=== PATIENT | female | born 2005 | race Caucasian/White ===

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

== ENCOUNTER 2024-01-03 18:52 | Emergency (ER) | payer OTHER ==
[2024-01-03] MEDS: ACETAMINOPHEN *IV* 1,000 MG in IV 1 EA IV ONE (19:53)
[2024-01-03] MEDS: ONDANSETRON 4MG 2ML VIAL IV ONE (19:54)
[2024-01-03 20:06] LABS: BASO % 0.3 % (0.0-1.0); EOS # 0.2 10^3/uL (0.0-0.5); HEMATOCRIT 34.6 % (36.0-47.0); HEMOGLOBIN 11.4 g/dl (12.0-15.5); LYMPH % 25.8 % (24.0-44.0); MEAN CORPUSCULAR HEMOGLOBIN 28.4 pg (27.0-33.0); MEAN CORPUSCULAR HGB CONC 32.9 g/dl (32.0-36.5); MEAN CORPUSCULAR VOLUME 86.3 fl (80.0-96.0); MONO # 0.6 10^3/uL (0.0-0.8); MONO % 7.9 % (2.0-8.0); NEUTROPHILS # 4.9 10^3/uL (1.5-8.5); NEUTROPHILS % 63.7 % (36.0-66.0); PLATELET COUNT, AUTOMATED 254 10^3/uL (150-450); RED BLOOD COUNT 4.01 10^6/uL (4.00-5.40); WHITE BLOOD COUNT 7.7 10^3/uL (4.0-10.0)
[2024-01-03 20:28] LABS: CK-MB VALUE MASS < 1.0 NG/ML (<3.6)
[2024-01-03 20:29] LABS: LIPASE 29 U/L (12-53)
[2024-01-03 20:31] LABS: ALBUMIN 3.2 G/DL (3.2-5.2); ALKALINE PHOSPHATASE 60 U/L (46-116); ALT/SGPT 39 U/L (7.0-40); AST/SGOT 24 U/L (<34); BILIRUBIN,DIRECT 0.2 MG/DL (<0.4); BILIRUBIN,TOTAL 0.5 MG/DL (0.3-1.2); BLOOD UREA NITROGEN 10 MG/DL (9-23); CALCIUM LEVEL 8.7 MG/DL (8.5-10.1); CARBON DIOXIDE LEVEL 27 MMOL/L (20-31); CHLORIDE LEVEL 108 MMOL/L (98-107); CPK CREATINE PHOSPHOKINASE 46 U/L (34-145); CREATININE FOR GFR 0.73 MG/DL (0.55-1.30); GLUCOSE, FASTING 85 MG/DL (60-100); MB/CK RELATIVE INDEX 2.17 (< OR =4); POTASSIUM SERUM 3.8 MMOL/L (3.5-5.1); SODIUM LEVEL 141 MMOL/L (136-145); TOTAL PROTEIN 6.3 G/DL (5.7-8.2)
[2024-01-03 20:33] LABS: FREE T4 1.01 NG/DL (0.83-1.43); THYROID STIMULATING HORMONE 1.855 uIU/ML (0.48-4.17)
[2024-01-03] MEDS ORDERED: ISOVUE-370 76% 100ML VIAL As Ordered ONE (20:38)
[2024-01-03 21:04] LABS: HIV 1&2 SCREEN NEGATIVE (NEGATIVE)
[2024-01-03 21:06] LABS: APPEARANCE, URINE CLEAR (CLEAR); BACTERIA, URINE AUTO NEGATIVE (NEGATIVE); BILIRUBIN, URINE AUTO NEGATIVE (NEGATIVE); BLOOD, URINE BLOOD NEGATIVE (NEGATIVE); COLOR, URINE STRAW (YELLOW); GLUCOSE, URINE (UA) AUTO NEGATIVE (NEGATIVE); KETONE, URINE AUTO NEGATIVE (NEGATIVE); LEUKOCYTE ESTERASE, URINE AUTO 1+ (NEGATIVE); NITRITE, URINE AUTO NEGATIVE (NEGATIVE); PROTEIN, URINE AUTO NEGATIVE (NEGATIVE); RBC, URINE AUTO 0 /HPF (0-3); SPECIFIC GRAVITY URINE AUTO 1.005 (1.002-1.035); SQUAMOUS EPITHELIAL CELL UR AU 0 /HPF (0-6); UROBILINOGEN, URINE AUTO 0.2 mg/dL (0.0-2.0); WBC, URINE AUTO 18 /HPF (0-3)
[2024-01-03 21:24] LABS: CK-MB VALUE MASS < 1.0 NG/ML (<3.6)
[2024-01-03 21:28] LABS: CPK CREATINE PHOSPHOKINASE 45 U/L (34-145); MB/CK RELATIVE INDEX 2.22 (< OR =4)
[2024-01-03 22:09] VITALS: BP 102/58; TEMP 98.4; O2SAT 99
[2024-01-03] MEDS ORDERED: ACET-683 PO (22:13)
== END 2024-01-03 22:18 | disposition home or self-care (01) ==
LOC: EDBD 18:52 → M ED 18:52 → EDUNIT# 18:52 → M ED 22:18
DX: R07.89 Other chest pain (principal); R10.9 Unspecified abdominal pain; I45.81 Long QT syndrome; Z91.013 Allergy to seafood; Z79.1 Long term (current) use of non-steroidal anti-inflammatories (NSAID)
CPT/HCPCS: 71045; 74177; 80048; 80076; 81001; 82550; 82553; 83690; 84439; 84443; 84484; 85025; 85379; 87389; 87486; 87581; 87633; 87798; 93005; 96374; 96375; 99284; J0131; J2405; Q9967

== ENCOUNTER 2024-02-03 22:37 | Emergency (ER) | payer OTHER ==
[~2024-02-03] VITALS: Ht 160 cm; Wt 72.3 kg
[~2024-02-03 22:37] MED LIST changes: +ACET-683 PO; +ONDA-282 PO; -ONDA4TAB6 PO
[2024-02-04 07:39] LABS: BASO % 0.3 % (0.0-1.0); EOS # 0.2 10^3/uL (0.0-0.5); EOS % 3.1 % (0.0-3.0); HEMATOCRIT 37.6 % (36.0-47.0); HEMOGLOBIN 11.9 g/dl (12.0-15.5); LYMPH # 2.3 10^3/uL (1.5-5.0); LYMPH % 37.8 % (24.0-44.0); MEAN CORPUSCULAR HEMOGLOBIN 27.7 pg (27.0-33.0); MEAN CORPUSCULAR HGB CONC 31.6 g/dl (32.0-36.5); MEAN CORPUSCULAR VOLUME 87.4 fl (80.0-96.0); MONO # 0.6 10^3/uL (0.0-0.8); MONO % 10.5 % (2.0-8.0); NEUTROPHILS # 2.9 10^3/uL (1.5-8.5); PLATELET COUNT, AUTOMATED 238 10^3/uL (150-450); WHITE BLOOD COUNT 6.1 10^3/uL (4.0-10.0)
[2024-02-04 07:58] LABS: LIPASE 32 U/L (12-53)
[2024-02-04 08:01] LABS: ALBUMIN 3.4 G/DL (3.2-5.2); ALKALINE PHOSPHATASE 57 U/L (46-116); ALT/SGPT 27 U/L (7.0-40); AST/SGOT 14 U/L (<34); BILIRUBIN,DIRECT 0.2 MG/DL (<0.4); BILIRUBIN,TOTAL 0.7 MG/DL (0.3-1.2); BLOOD UREA NITROGEN 12 MG/DL (9-23); CARBON DIOXIDE LEVEL 29 MMOL/L (20-31); CHLORIDE LEVEL 107 MMOL/L (98-107); CREATININE FOR GFR 0.68 MG/DL (0.55-1.30); GLUCOSE, FASTING 87 MG/DL (60-100); POTASSIUM SERUM 3.8 MMOL/L (3.5-5.1); SODIUM LEVEL 141 MMOL/L (136-145); TOTAL PROTEIN 6.6 G/DL (5.7-8.2)
[2024-02-04 08:12] LABS: HCG, SERUM QUALITATIVE NEGATIVE (NEGATIVE)
[2024-02-04] MEDS ORDERED: ISOVUE-370 76% 100ML VIAL As Ordered ONE (08:40)
[2024-02-04] MEDS ORDERED: ONDA-282 PO (09:20)
[2024-02-04] MEDS ORDERED: PROT1TAB2 PO (09:20)
[2024-02-04 09:38] VITALS: BP 109/52; TEMP 97.8; O2SAT 99
== END 2024-02-04 09:39 | disposition home or self-care (01) ==
LOC: M ED 22:37
DX: G43.909 Migraine, unspecified, not intractable, without status migrainosus (principal); K92.0 Hematemesis; F41.9 Anxiety disorder, unspecified; F32.A Depression, unspecified; Z91.013 Allergy to seafood; Z79.83 Long term (current) use of bisphosphonates; Z79.1 Long term (current) use of non-steroidal anti-inflammatories (NSAID); Z79.899 Other long term (current) drug therapy
CPT/HCPCS: 36415; 74177; 80048; 80076; 83690; 84703; 85025; 86850; 86900; 86901; 99284; Q9967

== ENCOUNTER 2024-04-13 20:39 | Emergency (ER) | payer OTHER ==
[~2024-04-13] VITALS: Ht 162.6 cm; Wt 71.9 kg
[~2024-04-13 20:39] MED LIST changes: +PROT1TAB2 PO
[2024-04-13 20:54] VITALS: TEMP 99
[2024-04-13 21:38] LABS: BASO % 0.5 % (0.0-1.0); EOS # 0.1 10^3/uL (0.0-0.5); EOS % 1.1 % (0.0-3.0); HEMATOCRIT 39.4 % (36.0-47.0); LYMPH # 2.7 10^3/uL (1.5-5.0); LYMPH % 30.9 % (24.0-44.0); MEAN CORPUSCULAR HEMOGLOBIN 28.5 pg (27.0-33.0); MEAN CORPUSCULAR VOLUME 86.4 fl (80.0-96.0); MONO # 0.6 10^3/uL (0.0-0.8); MONO % 7.1 % (2.0-8.0); NEUTROPHILS # 5.2 10^3/uL (1.5-8.5); NEUTROPHILS % 60.2 % (36.0-66.0); PLATELET COUNT, AUTOMATED 264 10^3/uL (150-450); RED BLOOD COUNT 4.56 10^6/uL (4.00-5.40); WHITE BLOOD COUNT 8.6 10^3/uL (4.0-10.0)
[2024-04-13 21:58] LABS: INR 1.11; PARTIAL THROMBOPLASTIN TIME 29.3 SECONDS (24.8-34.2); PROTHROMBIN TIME 13.9 SECONDS (12.5-14.5)
[2024-04-13 22:07] LABS: LIPASE 34 U/L (12-53)
[2024-04-13 22:10] LABS: ALBUMIN 3.8 G/DL (3.2-5.2); ALKALINE PHOSPHATASE 66 U/L (46-116); ALT/SGPT 18 U/L (7.0-40); AST/SGOT 20 U/L (<34); BILIRUBIN,DIRECT 0.2 MG/DL (<0.4); BILIRUBIN,TOTAL 0.5 MG/DL (0.3-1.2); BLOOD UREA NITROGEN 14 MG/DL (9-23); CALCIUM LEVEL 9.9 MG/DL (8.5-10.1); CARBON DIOXIDE LEVEL 25 MMOL/L (20-31); CHLORIDE LEVEL 109 MMOL/L (98-107); CREATININE FOR GFR 0.96 MG/DL (0.55-1.30); GLUCOSE, FASTING 94 MG/DL (60-100); POTASSIUM SERUM 3.9 MMOL/L (3.5-5.1); SODIUM LEVEL 141 MMOL/L (136-145); TOTAL PROTEIN 7.7 G/DL (5.7-8.2)
[2024-04-13 22:35] LABS: HCG, SERUM QUALITATIVE NEGATIVE (NEGATIVE)
[2024-04-13] MEDS: diphenhydrAMINE 50MG/ML VIAL IV ONE (22:45)
[2024-04-13] MEDS: METOCLOPRAMIDE INJ 10MG/2ML VIAL IV ONE (22:45)
[2024-04-13] MEDS: KETOROLAC 30 MG/ML 1ML VIAL IV ONE (22:46)
[2024-04-13] MEDS: NS 1,000 ML IV ONE (22:46)
[2024-04-13] MEDS ORDERED: ISOVUE-370 76% 100ML VIAL As Ordered ONE (23:07)
[2024-04-14 01:59] LABS: BASO % 0.4 % (0.0-1.0); EOS # 0.1 10^3/uL (0.0-0.5); EOS % 0.9 % (0.0-3.0); HEMATOCRIT 34.7 % (36.0-47.0); HEMOGLOBIN 11.3 g/dl (12.0-15.5); LYMPH # 2.1 10^3/uL (1.5-5.0); LYMPH % 27.1 % (24.0-44.0); MEAN CORPUSCULAR HEMOGLOBIN 28.3 pg (27.0-33.0); MEAN CORPUSCULAR HGB CONC 32.6 g/dl (32.0-36.5); MONO # 0.5 10^3/uL (0.0-0.8); MONO % 6.2 % (2.0-8.0); NEUTROPHILS # 5.1 10^3/uL (1.5-8.5); NEUTROPHILS % 65.1 % (36.0-66.0); PLATELET COUNT, AUTOMATED 240 10^3/uL (150-450); RED BLOOD COUNT 3.99 10^6/uL (4.00-5.40); WHITE BLOOD COUNT 7.8 10^3/uL (4.0-10.0)
[2024-04-14] MEDS ORDERED: FIOR1CAP PO (02:58)
[2024-04-14] MEDS ORDERED: AMIT10TA7 PO (02:58)
[2024-04-14 03:15] VITALS: BP 101/56; O2SAT 96
== END 2024-04-14 03:23 | disposition home or self-care (01) ==
LOC: M ED 20:39
DX: G43.709 Chronic migraine without aura, not intractable, without status migrainosus (principal); F32.A Depression, unspecified; F17.200 Nicotine dependence, unspecified, uncomplicated; F12.10 Cannabis abuse, uncomplicated; F10.10 Alcohol abuse, uncomplicated; Z91.013 Allergy to seafood; Z79.83 Long term (current) use of bisphosphonates; Z79.1 Long term (current) use of non-steroidal anti-inflammatories (NSAID); Z79.899 Other long term (current) drug therapy
CPT/HCPCS: 70450; 74177; 80048; 80076; 83690; 84703; 85025; 85610; 85730; 86850; 86900; 86901; 93005; 93041; 96361; 96374; 96375; 99285; J1200; J1885; J2765; Q9967

== ENCOUNTER → 2024-05-02 | Outpatient (REF) | payer OTHER ==
[~2024-05-02] MED LIST changes: +AMIT10TA7 PO; +FIOR1CAP PO
[2024-05-02 18:42] LABS: BASO % 0.4 % (0.0-1.0); EOS # 0.1 10^3/uL (0.0-0.5); EOS % 2.4 % (0.0-3.0); HEMATOCRIT 40.3 % (36.0-47.0); HEMOGLOBIN 13.1 g/dl (12.0-15.5); LYMPH % 40.1 % (24.0-44.0); MEAN CORPUSCULAR HEMOGLOBIN 28.5 pg (27.0-33.0); MEAN CORPUSCULAR HGB CONC 32.5 g/dl (32.0-36.5); MEAN CORPUSCULAR VOLUME 87.8 fl (80.0-96.0); MONO # 0.5 10^3/uL (0.0-0.8); MONO % 10.1 % (2.0-8.0); NEUTROPHILS # 2.3 10^3/uL (1.5-8.5); NEUTROPHILS % 46.8 % (36.0-66.0); PLATELET COUNT, AUTOMATED 192 10^3/uL (150-450); RED BLOOD COUNT 4.59 10^6/uL (4.00-5.40); WHITE BLOOD COUNT 4.9 10^3/uL (4.0-10.0)
[2024-05-02 19:21] LABS: FERRITIN 34.6 NG/ML (7.3-270.7)
== END ==
LOC: M LAB REF 16:24
PROVIDERS: ATTEND Physician Assistant
DX: Z87.19 Personal history of other diseases of the digestive system (principal)

== ENCOUNTER 2024-05-14 18:28 | Emergency (ER) | payer OTHER ==
[~2024-05-14] VITALS: Ht 162.6 cm; Wt 62.0 kg
[2024-05-14 18:39] VITALS: BP 134/90; TEMP 97.9; O2SAT 94
[2024-05-14 19:36] LABS: HEMATOCRIT 42.2 % (36.0-47.0); HEMOGLOBIN 13.5 g/dl (12.0-15.5); MEAN CORPUSCULAR HEMOGLOBIN 27.7 pg (27.0-33.0); MEAN CORPUSCULAR VOLUME 86.5 fl (80.0-96.0); PLATELET COUNT, AUTOMATED 274 10^3/uL (150-450); RED BLOOD COUNT 4.88 10^6/uL (4.00-5.40); WHITE BLOOD COUNT 6.5 10^3/uL (4.0-10.0)
[2024-05-14 20:09] LABS: ETHYL ALCOHOL (ETHANOL) < 0.003 % (0.000-0.010)
[2024-05-14 20:10] LABS: SALICYLATE LEVEL < 3.0 MG/DL (<30)
[2024-05-14 20:11] LABS: ALKALINE PHOSPHATASE 78 U/L (46-116); ALT/SGPT 16 U/L (7.0-40); AST/SGOT < 8 U/L (<34); BILIRUBIN,DIRECT 0.2 MG/DL (<0.4); BILIRUBIN,TOTAL 0.6 MG/DL (0.3-1.2); BLOOD UREA NITROGEN 10 MG/DL (9-23); CALCIUM LEVEL 9.2 MG/DL (8.5-10.1); CARBON DIOXIDE LEVEL 26 MMOL/L (20-31); CHLORIDE LEVEL 106 MMOL/L (98-107); CREATININE FOR GFR 0.75 MG/DL (0.55-1.30); GLUCOSE, FASTING 90 MG/DL (60-100); POTASSIUM SERUM 3.6 MMOL/L (3.5-5.1); SODIUM LEVEL 138 MMOL/L (136-145); TOTAL PROTEIN 8.1 G/DL (5.7-8.2)
[2024-05-14 20:13] LABS: HCG, SERUM QUALITATIVE NEGATIVE (NEGATIVE); THYROID STIMULATING HORMONE 1.225 uIU/ML (0.48-4.17)
== END 2024-05-14 21:40 | disposition home or self-care (01) ==
LOC: M ED 18:28
DX: F43.0 Acute stress reaction (principal); Z91.013 Allergy to seafood; Z79.1 Long term (current) use of non-steroidal anti-inflammatories (NSAID); Z79.899 Other long term (current) drug therapy

== ENCOUNTER 2024-05-25 12:14 | Emergency (ER) | payer OTHER ==
[~2024-05-25] VITALS: Ht 162.6 cm; Wt 70.4 kg
[2024-05-25 12:24] VITALS: BP 122/76; TEMP 97.3; O2SAT 99
== END 2024-05-25 12:38 | disposition left against medical advice (07) ==
LOC: M ED 12:14 → EDBD 12:14 → M ED 12:38
DX: Z53.21 Procedure and treatment not carried out due to patient leaving prior to being seen by health care provider (principal)

== ENCOUNTER → 2024-05-31 | Outpatient (CLI) | payer OTHER | LOC: M RAD 09:08 | PROVIDERS: ATTEND Physician Assistant | DX: R10.13 Epigastric pain (principal) ==

== ENCOUNTER 2024-06-23 21:14 | Emergency (ER) | payer OTHER ==
[~2024-06-23] VITALS: Ht 160 cm; Wt 71.6 kg
[2024-06-23 21:20] VITALS: BP 118/82; TEMP 97.3; O2SAT 100
[2024-06-23 21:36] LABS: URINE PREG TEST NEGATIVE (NEGATIVE)
== END 2024-06-23 22:47 | disposition home or self-care (01) ==
LOC: M ED 21:14
DX: Z32.02 Encounter for pregnancy test, result negative (principal); Z91.013 Allergy to seafood; Z79.1 Long term (current) use of non-steroidal anti-inflammatories (NSAID); Z79.899 Other long term (current) drug therapy

== ENCOUNTER 2024-06-24 12:46 | Emergency (ER) | payer OTHER ==
[~2024-06-24] VITALS: Ht 160 cm; Wt 50.0 kg
[2024-06-24 13:00] VITALS: TEMP 98.1
[2024-06-24 13:29] LABS: BASO % 0.3 % (0.0-1.0); EOS # 0.1 10^3/uL (0.0-0.5); EOS % 1.2 % (0.0-3.0); HEMATOCRIT 39.8 % (36.0-47.0); HEMOGLOBIN 12.8 g/dl (12.0-15.5); LYMPH # 1.5 10^3/uL (1.5-5.0); LYMPH % 22.6 % (24.0-44.0); MEAN CORPUSCULAR HEMOGLOBIN 28.4 pg (27.0-33.0); MEAN CORPUSCULAR HGB CONC 32.2 g/dl (32.0-36.5); MEAN CORPUSCULAR VOLUME 88.2 fl (80.0-96.0); MONO # 0.8 10^3/uL (0.0-0.8); MONO % 11.8 % (2.0-8.0); NEUTROPHILS # 4.3 10^3/uL (1.5-8.5); NEUTROPHILS % 63.8 % (36.0-66.0); PLATELET COUNT, AUTOMATED 268 10^3/uL (150-450); RED BLOOD COUNT 4.51 10^6/uL (4.00-5.40); WHITE BLOOD COUNT 6.8 10^3/uL (4.0-10.0)
[2024-06-24 14:00] LABS: ALBUMIN 3.6 G/DL (3.2-5.2); ALKALINE PHOSPHATASE 65 U/L (35-104); ALT/SGPT 21 U/L (7.0-40); AST/SGOT 12 U/L (<34); BILIRUBIN,DIRECT 0.2 MG/DL (<0.4); BILIRUBIN,TOTAL 0.5 MG/DL (0.3-1.2); BLOOD UREA NITROGEN 12 MG/DL (9-23); CALCIUM LEVEL 9.9 MG/DL (8.5-10.1); CARBON DIOXIDE LEVEL 29 MMOL/L (20-31); CHLORIDE LEVEL 108 MMOL/L (98-107); CK-MB VALUE MASS < 1.0 NG/ML (<3.6); CPK CREATINE PHOSPHOKINASE 37 U/L (34-145); CREATININE FOR GFR 0.84 MG/DL (0.55-1.30); GLUCOSE, FASTING 84 MG/DL (60-100); MAGNESIUM LEVEL 1.9 MG/DL (1.8-2.4); POTASSIUM SERUM 4.3 MMOL/L (3.5-5.1); SODIUM LEVEL 142 MMOL/L (136-145); TOTAL PROTEIN 7.6 G/DL (5.7-8.2)
[2024-06-24 14:08] LABS: HCG, SERUM QUALITATIVE NEGATIVE (NEGATIVE)
[2024-06-24] MEDS: LIDOCAINE VISCOUS 2% SOLN 15ML UDC PO ONE (14:39)
[2024-06-24] MEDS: ONDANSETRON 4MG ORAL DISINTEGRATING TAB PO ONE (14:39)
[2024-06-24] MEDS: MAALOX 30 ML SUSP *UDC PO ONE (14:39)
[2024-06-24] MEDS: SUCRALFATE SUSP 1GM/10ML UD PO ONE (14:39)
[2024-06-24 16:15] VITALS: BP 121/72
[2024-06-24 16:16] VITALS: O2SAT 98
== END 2024-06-24 16:32 | disposition home or self-care (01) ==
LOC: EDBD 12:46 → M ED 12:46
DX: R55 Syncope and collapse (principal); R00.0 Tachycardia, unspecified; F32.A Depression, unspecified; F41.9 Anxiety disorder, unspecified; F17.290 Nicotine dependence, other tobacco product, uncomplicated; Z91.013 Allergy to seafood; Z79.1 Long term (current) use of non-steroidal anti-inflammatories (NSAID); Z79.899 Other long term (current) drug therapy

== ENCOUNTER 2024-08-08 15:13 | Emergency (ER) | payer OTHER ==
[~2024-08-08] VITALS: Ht 162.6 cm; Wt 79.4 kg
[2024-08-08 16:00] LABS: HEMATOCRIT 39.5 % (36.0-47.0); HEMOGLOBIN 12.7 g/dl (12.0-15.5); MEAN CORPUSCULAR HEMOGLOBIN 28.2 pg (27.0-33.0); MEAN CORPUSCULAR HGB CONC 32.2 g/dl (32.0-36.5); MEAN CORPUSCULAR VOLUME 87.6 fl (80.0-96.0); PLATELET COUNT, AUTOMATED 256 10^3/uL (150-450); RED BLOOD COUNT 4.51 10^6/uL (4.00-5.40); WHITE BLOOD COUNT 6.8 10^3/uL (4.0-10.0)
[2024-08-08 16:23] LABS: ETHYL ALCOHOL (ETHANOL) < 0.003 % (0.000-0.010); HCG, SERUM QUALITATIVE NEGATIVE (NEGATIVE)
[2024-08-08 16:24] LABS: SALICYLATE LEVEL < 3.0 MG/DL (<30)
[2024-08-08 16:25] LABS: ALBUMIN 3.7 G/DL (3.2-5.2); ALKALINE PHOSPHATASE 63 U/L (35-104); ALT/SGPT 17 U/L (7.0-40); AST/SGOT 13 U/L (<34); BILIRUBIN,DIRECT 0.1 MG/DL (<0.4); BILIRUBIN,TOTAL 0.4 MG/DL (0.3-1.2); BLOOD UREA NITROGEN 10 MG/DL (9-23); CALCIUM LEVEL 9.9 MG/DL (8.5-10.1); CARBON DIOXIDE LEVEL 27 MMOL/L (20-31); CHLORIDE LEVEL 106 MMOL/L (98-107); GLUCOSE, FASTING 86 MG/DL (60-100); POTASSIUM SERUM 3.8 MMOL/L (3.5-5.1); SODIUM LEVEL 141 MMOL/L (136-145); TOTAL PROTEIN 7.2 G/DL (5.7-8.2)
[2024-08-08 16:27] LABS: THYROID STIMULATING HORMONE 2.611 uIU/ML (0.48-4.17)
[2024-08-08 16:59] LABS: AMPHETAMINES LEVEL URINE NEGATIVE (NEGATIVE); BARBITURATES URINE NEGATIVE (NEGATIVE); BENZODIAZEPINES URINE NEGATIVE (NEGATIVE); CANNABINOIDS URINE NEGATIVE (NEGATIVE); COCAINE METABOLITE URINE NEGATIVE (NEGATIVE); METHADONE URINE NEGATIVE (NEGATIVE); OPIATES URINE NEGATIVE (NEGATIVE); PHENCYCLIDINE URINE NEGATIVE (NEGATIVE)
[2024-08-08 17:59] VITALS: BP 127/75; TEMP 97.9; O2SAT 100
== END 2024-08-08 18:06 | disposition home or self-care (01) ==
LOC: M ED 15:13
DX: F43.0 Acute stress reaction (principal); F32.A Depression, unspecified; F41.9 Anxiety disorder, unspecified; Z91.013 Allergy to seafood; Z79.1 Long term (current) use of non-steroidal anti-inflammatories (NSAID); Z79.899 Other long term (current) drug therapy

== ENCOUNTER → 2024-08-09 | Outpatient (CLI) | payer OTHER ==
[2024-08-09 13:10] LABS: BASO % 0.7 % (0.0-1.0); EOS # 0.1 10^3/uL (0.0-0.5); EOS % 1.3 % (0.0-3.0); HEMATOCRIT 39.7 % (36.0-47.0); LYMPH # 1.6 10^3/uL (1.5-5.0); LYMPH % 25.8 % (24.0-44.0); MEAN CORPUSCULAR HEMOGLOBIN 28.2 pg (27.0-33.0); MEAN CORPUSCULAR HGB CONC 32.7 g/dl (32.0-36.5); MEAN CORPUSCULAR VOLUME 86.1 fl (80.0-96.0); MONO # 0.4 10^3/uL (0.0-0.8); MONO % 6.2 % (2.0-8.0); NEUTROPHILS % 65.8 % (36.0-66.0); PLATELET COUNT, AUTOMATED 256 10^3/uL (150-450); RED BLOOD COUNT 4.61 10^6/uL (4.00-5.40); WHITE BLOOD COUNT 6.1 10^3/uL (4.0-10.0)
[2024-08-09 13:16] LABS: ERYTHROCYTE SEDIMENTATION RATE 29 mm/hr (0-20)
[2024-08-09 13:42] LABS: BLOOD UREA NITROGEN 15 MG/DL (9-23); C REACTIVE PROTEIN QUANTITATIV < 0.50 MG/DL (<1.0); CALCIUM LEVEL 9.5 MG/DL (8.5-10.1); CARBON DIOXIDE LEVEL 28 MMOL/L (20-31); CHLORIDE LEVEL 103 MMOL/L (98-107); GLUCOSE, FASTING 108 MG/DL (60-100); IRON (FE) 34 UG/DL (50-170); PERCENT SATURATION 10.7 % (13.2-45.0); POTASSIUM SERUM 3.6 MMOL/L (3.5-5.1); SODIUM LEVEL 140 MMOL/L (136-145); TOTAL IRON BINDING CAPACITY 317 UG/DL (250-425)
[2024-08-09 13:43] LABS: FERRITIN 31.3 NG/ML (7.3-270.7)
[2024-08-09 13:46] LABS: HCG, SERUM QUALITATIVE NEGATIVE (NEGATIVE)
== END ==
LOC: M RAD 11:42
PROVIDERS: ATTEND Physician Assistant
DX: R06.00 Dyspnea, unspecified (principal); E61.1 Iron deficiency

== ENCOUNTER → 2024-08-22 | Outpatient (CLI) | payer OTHER | LOC: M RAD 11:40 | PROVIDERS: ATTEND Physician Assistant | DX: R10.13 Epigastric pain (principal) | CPT/HCPCS: 78227; A9537 ==

== ENCOUNTER → 2024-11-14 | Outpatient (CLI) | payer OTHER ==
[2024-11-14 14:56] LABS: HEMATOCRIT 38.6 % (36.0-47.0); HEMOGLOBIN 12.6 g/dl (12.0-15.5); MEAN CORPUSCULAR HEMOGLOBIN 27.6 pg (27.0-33.0); MEAN CORPUSCULAR HGB CONC 32.6 g/dl (32.0-36.5); MEAN CORPUSCULAR VOLUME 84.5 fl (80.0-96.0); PLATELET COUNT, AUTOMATED 313 10^3/uL (150-450); RED BLOOD COUNT 4.57 10^6/uL (4.00-5.40); WHITE BLOOD COUNT 10.7 10^3/uL (4.0-10.0)
[2024-11-14 16:02] LABS: Trichomonas vaginalis (AMP) NOT DETECTED (NEGATIVE)
[2024-11-14 16:07] LABS: HIV 1&2 SCREEN NEGATIVE (NEGATIVE)
[2024-11-14 16:15] LABS: HEPATITIS C VIRUS ABY INDEX 0.03 INDEX (<0.8)
[2024-11-14 16:25] LABS: GC DNA AMPLIFICATION NEGATIVE (NEGATIVE)
== END ==
LOC: M LAB 14:02
PROVIDERS: ATTEND Specialist
DX: Z36.89 Encounter for other specified antenatal screening (principal); Z34.01 Encounter for supervision of normal first pregnancy, first trimester

== ENCOUNTER 2024-11-27 20:55 | Emergency (ER) | payer OTHER ==
[~2024-11-27] VITALS: Ht 165.1 cm; Wt 87.9 kg
[2024-11-27 22:10] VITALS: TEMP 96.3
[2024-11-27] MEDS: NS (Normal Saline) 0.9% 1,000 ML IV ONE ×2 (22:45→23:25)
[2024-11-27 23:16] VITALS: BP 112/55
[2024-11-27 23:55] VITALS: O2SAT 99
== END 2024-11-28 00:24 | disposition home or self-care (01) ==
LOC: M ED 20:55
DX: R11.2 Nausea with vomiting, unspecified (principal); Z91.013 Allergy to seafood; Z79.1 Long term (current) use of non-steroidal anti-inflammatories (NSAID); Z79.899 Other long term (current) drug therapy

== ENCOUNTER → 2024-12-01 | Outpatient (REF) | payer OTHER ==
[2024-12-01 13:23] LABS: Trichomonas vaginalis (AMP) NOT DETECTED (NEGATIVE)
[2024-12-01 13:46] LABS: GC DNA AMPLIFICATION NEGATIVE (NEGATIVE)
== END ==
LOC: M LAB REF 11:34
PROVIDERS: ATTEND Physician Assistant
DX: R30.0 Dysuria (principal)

== ENCOUNTER 2024-12-25 20:12 | Emergency (ER) | payer OTHER, MEDICAID ==
[~2024-12-25] VITALS: Ht 162.6 cm; Wt 85.0 kg
[2024-12-25 21:45] LABS: KETONE, URINE AUTO RFX NEGATIVE (NEGATIVE); MUCUS, URINE RFX SMALL (NEGATIVE); NITRITE, URINE AUTO RFX NEGATIVE (NEGATIVE); RBC, URINE AUTO RFX 6 /HPF (0-3); SQUAM EPITHELIAL CELL UR AURFX 21 /HPF (0-6)
[2024-12-25 21:46] LABS: BASO % 0.2 % (0.0-1.0); EOS # 0.1 10^3/uL (0.0-0.5); EOS % 0.5 % (0.0-3.0); HEMOGLOBIN 11.4 g/dl (12.0-15.5); LEUKOCYTE ESTERASE UR AUTO RFX 3+ (NEGATIVE); LYMPH # 1.7 10^3/uL (1.5-5.0); MEAN CORPUSCULAR HEMOGLOBIN 28.3 pg (27.0-33.0); MEAN CORPUSCULAR HGB CONC 33.5 g/dl (32.0-36.5); MEAN CORPUSCULAR VOLUME 84.4 fl (80.0-96.0); MONO # 0.9 10^3/uL (0.0-0.8); MONO % 7.2 % (2.0-8.0); NEUTROPHILS # 10.1 10^3/uL (1.5-8.5); NEUTROPHILS % 78.6 % (36.0-66.0); PLATELET COUNT, AUTOMATED 270 10^3/uL (150-450); RED BLOOD COUNT 4.03 10^6/uL (4.00-5.40); WBC, URINE AUTO RFX 26 /HPF (0-3); WHITE BLOOD COUNT 12.8 10^3/uL (4.0-10.0)
[2024-12-25 22:17] LABS: BLOOD UREA NITROGEN 10 MG/DL (9-23); CALCIUM LEVEL 8.8 MG/DL (8.5-10.1); CARBON DIOXIDE LEVEL 24 MMOL/L (20-31); CHLORIDE LEVEL 104 MMOL/L (98-107); CREATININE FOR GFR 0.53 MG/DL (0.55-1.30); GLOMERULAR FILTRATION RATE > 90.0 (>60); GLUCOSE, FASTING 75 MG/DL (60-100); POTASSIUM SERUM 4.1 MMOL/L (3.5-5.1); SODIUM LEVEL 137 MMOL/L (136-145)
[2024-12-25 22:40] LABS: HCG, SERUM QUANTITATIVE 28041.6 MIU/ML (<4.2)
[2024-12-25] MEDS: LIDOCAINE 2% MDV 20ML VIAL SC ONE (22:40)
[2024-12-25] MEDS ORDERED: CEPH500C PO (23:52)
[2024-12-26 00:06] VITALS: BP 121/68; TEMP 98.6; O2SAT 100
== END 2024-12-26 00:15 | disposition home or self-care (01) ==
LOC: M ED 20:12
DX: O26.852 Spotting complicating pregnancy, second trimester (principal); O46.8X2 Other antepartum hemorrhage, second trimester; O99.712 Diseases of the skin and subcutaneous tissue complicating pregnancy, second trimester; Z3A.15 15 weeks gestation of pregnancy; Z91.030 Bee allergy status; Z79.1 Long term (current) use of non-steroidal anti-inflammatories (NSAID); Z79.2 Long term (current) use of antibiotics; Z79.899 Other long term (current) drug therapy

== ENCOUNTER 2024-12-27 14:38 | Emergency (ER) | payer MEDICAID, OTHER ==
[~2024-12-27] VITALS: Ht 162.6 cm; Wt 84.5 kg
[2024-12-27 14:42] VITALS: BP 115/64; TEMP 98.6; O2SAT 97
== END 2024-12-27 15:56 | disposition home or self-care (01) ==
LOC: M ED 14:38
DX: Z48.00 Encounter for change or removal of nonsurgical wound dressing (principal); Z91.013 Allergy to seafood; Z79.1 Long term (current) use of non-steroidal anti-inflammatories (NSAID); Z79.899 Other long term (current) drug therapy

== ENCOUNTER → 2024-12-27 | Outpatient (CLI) | payer MEDICAID, OTHER ==
[~2024-12-27] MED LIST changes: +CEPH500C PO
== END ==
LOC: M LAB 16:00
DX: N93.8 Other specified abnormal uterine and vaginal bleeding (principal)

== ENCOUNTER → 2025-02-13 | Outpatient (CLI) | payer OTHER ==
[~2025-02-13] MED LIST changes: +AMIT10TA11 PO; -AMIT10TA7 PO
== END ==
LOC: M WHC 10:39
PROVIDERS: ATTEND Advanced Practice Midwife
DX: Z34.02 Encounter for supervision of normal first pregnancy, second trimester (principal)

== ENCOUNTER 2025-03-12 18:19 | Outpatient (CLI) | payer OTHER, MEDICAID ==
[~2025-03-12] VITALS: Ht 162.6 cm; Wt 95.9 kg
[2025-03-12] MEDS ORDERED: PRENTAB9 PO (18:32)
[2025-03-12] MEDS ORDERED: ACET-907 PO (18:32)
[2025-03-12 19:31] LABS: PLATELET COUNT, AUTOMATED 305 10^3/uL (150-450)
[2025-03-12 21:51] LABS: Trichomonas vaginalis (AMP) NOT DETECTED (NEGATIVE)
[2025-03-12 22:14] LABS: GC DNA AMPLIFICATION NEGATIVE (NEGATIVE)
== END 2025-03-12 21:15 | disposition home or self-care (01) ==
LOC: M LDO 18:19
PROVIDERS: ATTEND Obstetrics & Gynecology
DX: O46.92 Antepartum hemorrhage, unspecified, second trimester (principal); O9A.212 Injury, poisoning and certain other consequences of external causes complicating pregnancy, second trimester; Z3A.26 26 weeks gestation of pregnancy; V40.6XXA Car passenger injured in collision with pedestrian or animal in traffic accident, initial encounter; Z91.013 Allergy to seafood
CPT/HCPCS: 36415; 59025; 76815; 85027; 85460; 87661; 87810; 87850; G0463

== ENCOUNTER → 2025-03-15 | Outpatient (CLI) | payer OTHER ==
[~2025-03-15] MED LIST changes: +ACET-907 PO; +PRENTAB9 PO
[2025-03-15 13:17] LABS: PLATELET COUNT, AUTOMATED 318 10^3/uL (150-450)
[2025-03-15 13:20] LABS: GLUCOSE CHALLENGE TEST 1 HOUR 116 MG/DL (LESS THAN 140)
[2025-03-15 13:55] LABS: HIV 1&2 SCREEN NEGATIVE (NEGATIVE)
[2025-03-15 14:03] LABS: HEPATITIS C VIRUS ABY INDEX < 0.02 INDEX (<0.8)
[2025-03-16 14:25] LABS: Trichomonas vaginalis (AMP) NOT DETECTED (NEGATIVE)
[2025-03-16 14:49] LABS: GC DNA AMPLIFICATION NEGATIVE (NEGATIVE)
== END ==
LOC: M PLALAB 10:02
PROVIDERS: ATTEND Obstetrics & Gynecology
DX: Z34.92 Encounter for supervision of normal pregnancy, unspecified, second trimester (principal)

== ENCOUNTER 2025-04-27 22:13 | Outpatient (CLI) | payer OTHER, MEDICAID ==
[~2025-04-27] VITALS: Ht 162.6 cm; Wt 106.5 kg
[~2025-04-27 22:13] MED LIST changes: -IBUP-1022 PO; +IBUP600T42 PO
[2025-04-27] MEDS ORDERED: HOME MED LIST COMPLETE! XX SCH (22:20)
[2025-04-27 22:27] VITALS: BP 136/69; O2SAT 97
[2025-04-27 23:19] VITALS: BP 127/78
[2025-04-28 00:28] LABS: Trichomonas vaginalis (AMP) NOT DETECTED (NEGATIVE)
[2025-04-28 00:52] LABS: GC DNA AMPLIFICATION NEGATIVE (NEGATIVE)
== END 2025-04-27 23:25 | disposition home or self-care (01) ==
LOC: M LDO 22:13
PROVIDERS: ATTEND Obstetrics & Gynecology
DX: O26.893 Other specified pregnancy related conditions, third trimester (principal); N89.8 Other specified noninflammatory disorders of vagina; Z3A.32 32 weeks gestation of pregnancy
CPT/HCPCS: 59025; 87661; 87810; 87850; G0463

== ENCOUNTER → 2025-05-19 | Outpatient (REF) | payer MEDICAID, OTHER | LOC: M SFHCWAGY 15:10 | PROVIDERS: ATTEND Student in an Organized Health Care Education/Training Program | DX: Z34.03 Encounter for supervision of normal first pregnancy, third trimester (principal); Z3A.36 36 weeks gestation of pregnancy ==

== ENCOUNTER 2025-06-11 06:47 | Inpatient (IN) | payer MEDICAID, OTHER ==
[2025-06-11] VITALS (8 sets, daily range): BP systolic 103–147; BP diastolic 52–84; TEMP 97.9; O2SAT 98
[~2025-06-11] VITALS: Ht 162.6 cm; Wt 113.2 kg
[2025-06-11] MEDS ORDERED: OXYTOCIN INJ 10UNITS/ML 1ML VIAL As Ordered ONE (06:50)
[2025-06-11] MEDS ORDERED: METHYLERGONOVINE MALEATE 0.2 MG/ML 1 ML VIAL IM PRN (06:55)
[2025-06-11] MEDS ORDERED: CARBOPROST TROMETHAMINE 250 MCG/ML AMP IM PRN (06:55)
[2025-06-11] MEDS ORDERED: TRANEXAMIC ACID INJection 1,000 MG in NS 100 ML IV PRN (06:55)
[2025-06-11] MEDS ORDERED: HOME MED LIST COMPLETE! XX SCH (07:00)
[2025-06-11] MEDS ORDERED: OXYTOCIN 30UNITS IN 0.9% NaCl 500ML IV BAG IV ONE (07:15)
[2025-06-11] MEDS ORDERED: DOCUSATE SODIUM 100 MG CAPSULE PO PRN (07:20)
[2025-06-11] MEDS ORDERED: RHOGAM 300MCG (1500IU) INJ IM SCH (07:20)
[2025-06-11] MEDS ORDERED: ACETAMINOPHEN 325 MG TAB PO PRN (07:20)
[2025-06-11] MEDS ORDERED: ONDANSETRON 4MG/2ML VIAL IV PRN (07:20)
[2025-06-11] MEDS ORDERED: IBUPROFEN 600 MG TAB PO PRN (07:20)
[2025-06-11] MEDS ORDERED: CALCIUM CARBONATE 500 MG CHEW U/D PO PRN (07:20)
[2025-06-11] MEDS ORDERED: ANUSOL HC CREAM 30 GM TOP PRN (07:20)
[2025-06-11] MEDS: OXYTOCIN INJ 10UNITS/ML 1ML VIAL IM PRN (07:54)
[2025-06-11] MEDS: OXYTOCIN DRIP 30 UNITS in IV 1 EA IV SCH (07:55)
[2025-06-11] MEDS: LIDOCAINE 1% MDV 20 ML VIAL INFIL PRN (07:55)
[2025-06-11 08:13] LABS: BASO # 0.0 10^3/uL (0.0-0.2); BASO % 0.2 % (0.0-1.0); EOS # 0.0 10^3/uL (0.0-0.5); EOS % 0.0 % (0.0-3.0); LYMPH # 0.7 10^3/uL (1.5-5.0); LYMPH % 2.9 % (24.0-44.0); MONO # 0.7 10^3/uL (0.0-0.8); MONO % 2.9 % (2.0-8.0); NEUTROPHILS # 21.2 10^3/uL (1.5-8.5); NEUTROPHILS % 93.1 % (36.0-66.0); PLATELET COUNT, AUTOMATED 327 10^3/uL (150-450)
[2025-06-11] MEDS: PRENATAL VITAMINS CHEWABLE TABLET PO SCH (09:00)
[2025-06-11 09:04] LABS: HIV 1&2 SCREEN NEGATIVE (NEGATIVE)
[2025-06-11 09:12] LABS: HEPATITIS C VIRUS ABY INDEX < 0.02 INDEX (<0.8)
[2025-06-11] MEDS ORDERED: CLEO300C2 PO (14:34)
[2025-06-11] MEDS: ACETAMINOPHEN 500 MG TAB PO PRN (14:59)
[2025-06-11] MEDS: DIBUCAINE 1% OINTMENT 30 GM TOP PRN (14:59)
[2025-06-11 15:19] LABS: AMPHETAMINES URINE REFLEX NEGATIVE (NEGATIVE); BARBITURATES URINE REFLEX NEGATIVE (NEGATIVE); BENZODIAZEPINES URINE REFLEX NEGATIVE (NEGATIVE); CANNABINOIDS URINE REFLEX NEGATIVE (NEGATIVE); COCAINE METABOLITE URINE REFLE NEGATIVE (NEGATIVE); METHADONE URINE REFLEX NEGATIVE (NEGATIVE); OPIATES URINE REFLEX NEGATIVE (NEGATIVE); PHENCYCLIDINE URINE REFLEX NEGATIVE (NEGATIVE)
[2025-06-11] MEDS: CLINDAMYCIN 150 MG CAPSULE PO SCH (18:08)
[2025-06-11] MEDS: IBUPROFEN 800 MG TAB PO PRN (18:09)
[2025-06-12 06:00] VITALS: BP 101/58; O2SAT 98
[2025-06-12 18:00] VITALS: BP 118/59; O2SAT 96
[2025-06-13 06:03] VITALS: BP 106/56; O2SAT 98
[2025-06-13] MEDS ORDERED: MEASLES,MUMPS,RUBELLA VACCINE INJ (MMR-II) SC.IMMUN ONE (09:00)
[2025-06-13 11:22] LABS: PLATELET COUNT, AUTOMATED 309 10^3/uL (150-450)
[2025-06-13 11:46] LABS: ALT/SGPT 33 U/L (7.0-40); AST/SGOT 34 U/L (<34); CALCIUM LEVEL 8.9 MG/DL (8.5-10.1); CARBON DIOXIDE LEVEL 24 MMOL/L (20-31); CHLORIDE LEVEL 108 MMOL/L (98-107); CREATININE FOR GFR 0.62 MG/DL (0.55-1.30); GLOMERULAR FILTRATION RATE > 90.0 (>60); POTASSIUM SERUM 4.2 MMOL/L (3.5-5.1); SODIUM LEVEL 142 MMOL/L (136-145)
[2025-06-13] MEDS ORDERED: FERR325T3 PO (12:26)
[2025-06-13] MEDS ORDERED: ACET-683 PO (12:26)
[2025-06-13] MEDS ORDERED: PROZ10CA11 PO (12:26)
== END 2025-06-13 14:55 | disposition home or self-care (01) | DRG 560 ==
LOC: M LDI 06:47 → EEVIPCON 06:47 → M OBS 09:18
PROVIDERS: ADMIT Obstetrics & Gynecology; ATTEND Obstetrics & Gynecology
PROC: 10E0XZZ Delivery of Products of Conception, External Approach (ICD-10-PCS; principal; 2025-06-11)
PROC: 0KQM0ZZ Repair Perineum Muscle, Open Approach (ICD-10-PCS; 2025-06-11)
DX: O99.344 Other mental disorders complicating childbirth (principal); F32.A Depression, unspecified; Z3A.39 39 weeks gestation of pregnancy; Z37.0 Single live birth; O70.1 Second degree perineal laceration during delivery

== ENCOUNTER 2025-06-24 00:45 | Inpatient (IN) | payer MEDICAID, OTHER ==
[~2025-06-24] VITALS: Ht 162.6 cm; Wt 104.3 kg
[2025-06-24] VITALS (21 sets, daily range): BP systolic 91–134; BP diastolic 51–71; TEMP 96.4–97.9; O2SAT 98
[~2025-06-24 00:45] MED LIST changes: +CLEO300C2 PO; +FERR325T3 PO; +PROZ10CA11 PO
[2025-06-24 01:21] LABS: BASO # 0.1 10^3/uL (0.0-0.2); BASO % 0.6 % (0.0-1.0); EOS # 0.4 10^3/uL (0.0-0.5); EOS % 2.5 % (0.0-3.0); LYMPH # 3.5 10^3/uL (1.5-5.0); LYMPH % 24.7 % (24.0-44.0); MONO # 0.8 10^3/uL (0.0-0.8); MONO % 5.6 % (2.0-8.0); NEUTROPHILS # 8.8 10^3/uL (1.5-8.5); NEUTROPHILS % 62.1 % (36.0-66.0); PLATELET COUNT, AUTOMATED 505 10^3/uL (150-450)
[2025-06-24 01:40] LABS: ETHYL ALCOHOL (ETHANOL) < 0.003 % (0.000-0.010)
[2025-06-24 01:42] LABS: ALT/SGPT 33 U/L (7.0-40); AST/SGOT 24 U/L (<34); CALCIUM LEVEL 8.7 MG/DL (8.5-10.1); CARBON DIOXIDE LEVEL 22 MMOL/L (20-31); CHLORIDE LEVEL 106 MMOL/L (98-107); CREATININE FOR GFR 1.22 MG/DL (0.55-1.30); GLOMERULAR FILTRATION RATE 65.2 (>60); MAGNESIUM LEVEL 1.8 MG/DL (1.8-2.4); PHOSPHORUS LEVEL 3.5 MG/DL (2.5-4.9); POTASSIUM SERUM 3.7 MMOL/L (3.5-5.1); SODIUM LEVEL 143 MMOL/L (136-145)
[2025-06-24] MEDS: NS (Normal Saline) 0.9% 1,000 ML IV ONE (02:12)
[2025-06-24 03:12] LABS: APPEARANCE, URINE HAZY (CLEAR); BACTERIA, URINE AUTO NEGATIVE (NEGATIVE); BILIRUBIN, URINE AUTO NEGATIVE (NEGATIVE); BLOOD, URINE BLOOD 1+ (NEGATIVE); GLUCOSE, URINE (UA) AUTO NEGATIVE (NEGATIVE); KETONE, URINE AUTO NEGATIVE (NEGATIVE); LEUKOCYTE ESTERASE, URINE AUTO 1+ (NEGATIVE); MUCUS, URINE SMALL (NEGATIVE); NITRITE, URINE AUTO NEGATIVE (NEGATIVE); PROTEIN, URINE AUTO NEGATIVE (NEGATIVE); RBC, URINE AUTO 2 /HPF (0-3); SPECIFIC GRAVITY URINE AUTO 1.015 (1.002-1.035); SQUAMOUS EPITHELIAL CELL UR AU 0 /HPF (0-6); UROBILINOGEN, URINE AUTO 0.2 mg/dL (0.0-2.0); WBC, URINE AUTO 11 /HPF (0-3)
[2025-06-24] MEDS: ACETAMINOPHEN *IV* 1,000 MG in IV 1 EA IV ONE (03:17)
[2025-06-24 03:37] LABS: AMPHETAMINES LEVEL URINE NEGATIVE (NEGATIVE); BARBITURATES URINE NEGATIVE (NEGATIVE); BENZODIAZEPINES URINE NEGATIVE (NEGATIVE); COCAINE METABOLITE URINE NEGATIVE (NEGATIVE); METHADONE URINE NEGATIVE (NEGATIVE)
[2025-06-24 03:38] LABS: OPIATES URINE NEGATIVE (NEGATIVE); PHENCYCLIDINE URINE NEGATIVE (NEGATIVE)
[2025-06-24 03:45] LABS: TOTAL PROTEIN,RANDOM URINE 30.5 MG/DL (0.0-14.0)
[2025-06-24 03:56] LABS: CANNABINOIDS URINE POSITIVE (NEGATIVE)
[2025-06-24] MEDS ORDERED: CALCIUM GLUCONATE 1,000 MG in DEXTROSE 5% (D5W) MINI-BAG PLU 100 ML IV PRN (04:35)
[2025-06-24] MEDS ORDERED: ACETAMINOPHEN 325 MG TAB PO PRN (04:40)
[2025-06-24] MEDS ORDERED: DOCUSATE SODIUM 100 MG CAPSULE PO PRN (04:40)
[2025-06-24] MEDS ORDERED: FLUO-290 PO (05:25)
[2025-06-24] MEDS ORDERED: FERR325T19 PO (05:25)
[2025-06-24] MEDS ORDERED: HOME MED LIST COMPLETE! XX SCH (05:30)
[2025-06-24] MEDS: MAG Sulf (L&D) 4 GM/100 ML 4 GM in IV 1 EA IV ONE (05:43)
[2025-06-24] MEDS: LR 1,000 ML IV SCH (05:44)
[2025-06-24] MEDS: MAGNESIUM *L&D* 4 GM/100 ML BAG (40 MG/ML) IV ONE (05:54)
[2025-06-24] MEDS: MAG Sulf (OBGYN) 20GM/500ML 20,000 MG in IV 1 EA IV SCH (06:27)
[2025-06-24] MEDS: ACETAMINOPHEN 500 MG TAB PO PRN (07:26)
[2025-06-24] MEDS ORDERED: IBUPROFEN 400 MG TAB PO PRN (09:50)
[2025-06-24 09:52] LABS: PLATELET COUNT, AUTOMATED 419 10^3/uL (150-450)
[2025-06-24 10:19] LABS: LDH LACTATE DEHYDROGENASE 226 U/L (120-246)
[2025-06-24 10:20] LABS: ALT/SGPT 27 U/L (7.0-40); AST/SGOT 21 U/L (<34); CREATININE FOR GFR 0.83 MG/DL (0.55-1.30); GLOMERULAR FILTRATION RATE > 90.0 (>60)
[2025-06-24] MEDS ORDERED: IBUPROFEN 600 MG TAB PO PRN (11:10)
[2025-06-24] MEDS: IBUPROFEN 800 MG TAB PO PRN (11:26)
[2025-06-24 14:41] LABS: LDH LACTATE DEHYDROGENASE 248 U/L (120-246)
[2025-06-24 14:42] LABS: ALT/SGPT 27 U/L (7.0-40); AST/SGOT 24 U/L (<34); CREATININE FOR GFR 0.77 MG/DL (0.55-1.30); GLOMERULAR FILTRATION RATE > 90.0 (>60); MAGNESIUM LEVEL 3.9 MG/DL (1.8-2.4)
[2025-06-24 20:44] LABS: LDH LACTATE DEHYDROGENASE 249 U/L (120-246)
[2025-06-24 20:45] LABS: ALT/SGPT 28 U/L (7.0-40); AST/SGOT 27 U/L (<34); CREATININE FOR GFR 0.71 MG/DL (0.55-1.30); GLOMERULAR FILTRATION RATE > 90.0 (>60); MAGNESIUM LEVEL 4.1 MG/DL (1.8-2.4)
[2025-06-25] VITALS (8 sets, daily range): BP systolic 90–122; BP diastolic 50–62; TEMP 96.3–97.2
[2025-06-25 02:56] LABS: LDH LACTATE DEHYDROGENASE 199 U/L (120-246)
[2025-06-25 02:58] LABS: ALT/SGPT 27 U/L (7.0-40); AST/SGOT 24 U/L (<34); CREATININE FOR GFR 0.70 MG/DL (0.55-1.30); GLOMERULAR FILTRATION RATE > 90.0 (>60); MAGNESIUM LEVEL 4.0 MG/DL (1.8-2.4)
[2025-06-25] MEDS ORDERED: ACET-683 PO (08:09)
[2025-06-25 08:30] LABS: LDH LACTATE DEHYDROGENASE 247 U/L (120-246)
[2025-06-25 08:31] LABS: ALT/SGPT 28 U/L (7.0-40); AST/SGOT 27 U/L (<34); CREATININE FOR GFR 0.72 MG/DL (0.55-1.30); GLOMERULAR FILTRATION RATE > 90.0 (>60); MAGNESIUM LEVEL 3.3 MG/DL (1.8-2.4)
== END 2025-06-25 10:25 | disposition home or self-care (01) | DRG 561 ==
LOC: M ED 00:45 → M LDI 05:29
PROVIDERS: ADMIT Advanced Practice Midwife; ATTEND Specialist
DX: O14.95 Unspecified pre-eclampsia, complicating the puerperium (principal); Z91.013 Allergy to seafood; Z79.899 Other long term (current) drug therapy